=== PATIENT | female | born 1935 | race Caucasian/White ===

== ENCOUNTER 2020-07-15 18:40 | Inpatient (IN) ==
[2020-07-15] MEDS ORDERED: ASPIRIN 325 MG TABLET PO STA (19:09)
[2020-07-15] MEDS ORDERED: ALUM/MAG/SIMETH/LIDO VISC 1:1 30 ML BOTTLE PO STA (19:09)
[2020-07-15] MEDS ORDERED: NITROGLYCERIN 2% OINT 1 INCH/GM PACK TOP STA (19:09)
[2020-07-15] MEDS ORDERED: ONDANSETRON 4 MG/2 ML VIAL IV STA (19:09)
[2020-07-15 19:17] LABS: Basophils % 0.3 % (0.0-0.8); Eosinophils # 0.1 10*3/uL (0.0-0.87); Eosinophils % 1.8 % (0.00-10.9); Hematocrit 31.2 VOL% (35.7-47.0); Hemoglobin 10.4 GM/DL (12.0-16.0); Immature Granulocytes % 0.3 %; Immature Granulocytes Absolute 0.02 #; Lymphocytes # 1.3 10*3/uL (1.4-4.0); Mean Corpuscular HGB Conc 33.3 GM/DL (32-36); Mean Corpuscular Volume 92.3 FL (87-102); Monocytes % 11.8 % (1.7-12.7); Neutrophils % 64.8 % (38.7-73.9); Platelet Count 171 T/CUMM (130-400); Red Blood Count 3.38 MC/CUMM (3.8-5.5); Red Cell Distribution Width 14.6 % (9.3-17.3)
[2020-07-15 19:22] LABS: INR 2.4; PT Patient Result 25.1 SECS (10.5-12.0)
[2020-07-15 19:33] LABS: Alanine Aminotransferase 25 U/L (13-56); Albumin 3.9 G/DL (3.4-5.0); Alkaline Phosphatase 54 U/L (45-117); Aspartate Amino Transferase 31 U/L (0-37); Bilirubin,Total < 0.39 MG/DL (0.2-1.0); Blood Urea Nitrogen 15 MG/DL (7-18); Calcium 9.4 MG/DL (8.5-10.1); Carbon Dioxide 29 MMOL/L (21-32); Estimated Glom Filtration Rate 69 ML/MIN; Glucose 102 MG/DL (74-106); Osmolality,Calculated 260.8 MOS/KG (273-304); Potassium 3.9 MMOL/L (3.5-5.1); Sodium 130 MMOL/L (136-145); Total Protein 7.2 G/DL (6.4-8.2)
[2020-07-15] MEDS ORDERED: ACETAMINOPHEN 325 MG TABLET PO PRN (22:02)
[2020-07-15] MEDS ORDERED: MORPHINE 4 MG/1 ML VIAL IV PRN (22:02)
[2020-07-15] MEDS ORDERED: ONDANSETRON 4 MG/2 ML VIAL IV PRN (22:02)
[2020-07-16] MEDS: SODIUM CHLORIDE 0.9% 1,000 ML IV SCH ×2 (00:27→14:27)
[2020-07-16 01:17] LABS: Basophils % 0.4 % (0.0-0.8); Eosinophils % 0.5 % (0.00-10.9); Hematocrit 29.2 VOL% (35.7-47.0); Hemoglobin 10.3 GM/DL (12.0-16.0); Immature Granulocytes % 0.2 %; Immature Granulocytes Absolute 0.01 #; Lymphocytes # 0.6 10*3/uL (1.4-4.0); Lymphocytes % 11.1 % (21.3-54.2); Mean Corpuscular HGB Conc 35.3 GM/DL (32-36); Mean Corpuscular Volume 90.1 FL (87-102); Mean Platelet Volume 12.1 FL (9.6-12.0); Monocytes % 8.1 % (1.7-12.7); Neutrophils % 79.7 % (38.7-73.9); Platelet Count 146 T/CUMM (130-400); Red Blood Count 3.24 MC/CUMM (3.8-5.5); Red Cell Distribution Width 14.6 % (9.3-17.3); White Blood Count 5.7 T/CUMM (4-12)
[2020-07-16 01:35] LABS: Alanine Aminotransferase 61 U/L (13-56); Albumin 3.6 G/DL (3.4-5.0); Alkaline Phosphatase 60 U/L (45-117); Aspartate Amino Transferase 87 U/L (0-37); Bilirubin,Total < 0.39 MG/DL (0.2-1.0); Blood Urea Nitrogen 12 MG/DL (7-18); Carbon Dioxide 28 MMOL/L (21-32); Estimated Glom Filtration Rate 81 ML/MIN; Glucose 94 MG/DL (74-106); HDL Cholesterol 89 MG/DL (40-60); Osmolality,Calculated 257.9 MOS/KG (273-304); Potassium 3.6 MMOL/L (3.5-5.1); Risk Ratio 2.22; Sodium 129 MMOL/L (136-145); Total Protein 6.8 G/DL (6.4-8.2); Triglycerides 31 MG/DL (2-150); VLDL CHOLESTEROL 6.2 MG/DL
[2020-07-16] MEDS ORDERED: METOPROLOL TARTRATE 25 MG TABLET PO SCH ×2 (08:00→21:00)
[2020-07-16] MEDS ORDERED: LOSARTAN 50 MG TABLET PO SCH (09:00)
[2020-07-16] MEDS ORDERED: MAGNESIUM CHLORIDE 64 MG TABLET PO SCH (09:00)
[2020-07-16] MEDS ORDERED: amLODIPine 10 MG TABLET PO SCH (09:00)
[2020-07-16] MEDS ORDERED: PANTOPRAZOLE 40 MG VIAL IV SCH (09:00)
[2020-07-16] MEDS ORDERED: DOCUSATE SODIUM 100 MG CAPSULE PO SCH (09:00)
[2020-07-16 16:44] VITALS: BP 148/67
[2020-07-16] MEDS ORDERED: OXYBUTYNIN XL 10 MG TABLET PO SCH (21:00)
[2020-07-16] MEDS ORDERED: MELATONIN 3 MG TABLET PO SCH (21:00)
[2020-07-17] MEDS ORDERED: PANTOPRAZOLE 40 MG TABLET PO SCH (06:30)
[2020-07-17] MEDS ORDERED: LEVOTHYROXINE 88 MCG TABLET PO SCH (07:00)
[2020-07-17] MEDS ORDERED: amLODIPine 5 MG TABLET PO SCH (09:00)
== END 2020-07-16 20:25 | disposition home or self-care (01) | DRG 439 ==
LOC: N.ED 18:40 → N.EDINP 21:01 → N.TELEN 21:18
PROVIDERS: ADMIT Family Medicine; ATTEND Family Medicine